=== PATIENT | female | born 1960 | race Caucasian/White ===

== ENCOUNTER 2018-02-05 06:39 | Day surgery (SDC) | payer BC ==
[2018-02-05 08:42] LABS: #Basophils 0.1 thou/uL (0.0-0.2); #Eosinphils 0.1 thou/uL (0.0-0.7); #Lymphocytes 1.1 thou/uL (1.20-3.40); #Monocytes 0.3 thou/uL (0.11-0.59); #Neutrophils 3.3 thou/uL (1.40-6.50); %Basophils 1.2 % (0.0-1.0); %Eosinophils 2.1 % (0.0-10.0); %Monocytes 6.2 % (0.0-10.0); %Neutrophils 68.6 % (42.0-75.0); Hemoglobin 15.5 g/dL (12.0-16.0); Mean Corpuscular HGB CONC 34.7 g/dL (32.0-36.0); Mean Corpuscular Hemoglobin 31.8 pg (27.0-31.0); Mean Corpuscular Volume 91.7 fL (78.0-98.0); Mean Platelet Volume 8.1 fL (7.4-10.4); Platelet Count 200 thou/uL (130-400); RBC Distribution Width 11.9 % (11.5-14.5); Red Blood Cell (RBC) Count 4.87 mill/uL (4.20-5.40); White Blood Cell (WBC) Count 4.8 thou/uL (4.8-10.8)
[2018-02-05] MEDS ORDERED: Midazolam HCl 2 mg/2 ml Vial ONE (08:43)
[2018-02-05] MEDS ORDERED: CEFAZOLIN 2 GM/50 ML BAG ONE (08:43)
[2018-02-05] MEDS ORDERED: Fentanyl 100 MCG/2 ML VIAL ONE (09:20)
[2018-02-05] MEDS ORDERED: Betamet Acet/Betamet Na Ph 30 MG/5 ML VIAL ONE (09:21)
[2018-02-05] MEDS ORDERED: Bacitracin Zinc Ointment 30 gm TUBE ONE (09:21)
[2018-02-05] MEDS ORDERED: Bupivacaine PF 0.5% 30 ML VIAL ONE (09:21)
[2018-02-05] MEDS ORDERED: Ketorolac Tromethamine 30 MG/ML VIAL ONE ×2 (11:17→16:45)
--- NOTE | 2018-02-05 13:38 | RAD ---
LEFT AND RIGHT THUMB TWO FLUOROSCOPIC SPOT IMAGES: INDICATION: Thumb CMC injections FINDINGS: The submitted images demonstrate needle localization of the first digit CMC articulation. IMPRESSION: Injection needles project over the thumb carpometacarpal joint. POS: [facility]
--- NOTE | 2018-02-05 15:57 | RAD ---
INTRAOPERATIVE FLUOROSCOPY 02/05/18 HISTORY: Injection into the first carpometacarpal joint space. FINDINGS: Intraprocedural fluoroscopic views demonstrate a needle projecting over the expected region of the fi rst carpometacarpal joint space. IMPRESSION: Fluoroscopy as above. POS: [facility]
[2018-02-05] MEDS ORDERED: Ondansetron PF 4 MG/2 ML Vial ONE (16:45)
[2018-02-05] MEDS ORDERED: Lidocaine 1% PF 5 ML VIAL ONE (16:45)
[2018-02-05] MEDS ORDERED: PROPOFOL 200 MG/20 ML VIAL ONE (16:45)
[2018-02-05] MEDS ORDERED: Dexamethasone 20 MG/5 ML VIAL ONE (16:45)
--- NOTE | 2018-02-07 15:37 | OP ---
DATE OF PROCEDURE: 02/05/2018 PREOPERATIVE DIAGNOSES: 1. Atrophy, possible spinal muscular disorder, possible dystrophy variant leading to weakness and atrophy of both hands that patient has been experiencing in thenar and first dorsal interosseous area. 2. 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 PROCEDURES PERFORMED: 1. Right first dorsal interosseous biopsy of muscle, standard 1.5 cm length, 5 mm width from the right side, then right thumb carpometacarpal joint injection with 2 mL of betamethasone/Celestone and then C-arm supervision. 1. At the left, left thenar flexor pollicis brevis muscle biopsy with carpometacarpal joint injection with same type, 2 mL of betamethasone and the patient had a C-arm used at the left side as well. TOURNIQUET TIME: 5 minutes on each side. There were no complications. Neurovascular bundles were protected. The patient will now be given osteoarthritis thumb carpometacarpal joint program for followup rehab. DESCRIPTION OF PROCEDURE: After successful general endotracheal anesthesia, Ms. Collier was prepped and draped. Time-out has been done appropriately and the patient had the right side approach first. We exsanguinated the limb, inflated the tourniquet, made a zigzag incision over the first dorsal interossei, removed the segment of muscle without violation of the innervation or the tendon that was approximately 6 to 7 mm wide and 27 mm long. Then, we lifted this out as we cut this longitudinally and allowed the muscle fibers, deflated the tourniquet, irrigated, obtained hemostasis, and closed the wound with interrupted with 4-0 nylon in a simple pattern. We then sent as a fresh frozen, dry, as stated above, 2.5 cm long and at least 5 mm wide. Then, on the left side, we performed the same mirroring the procedure except at this time we used the extensor flexor pollicis brevis muscle where there was atrophy and there were no complications. The C-arm was also used for injection to localize the joint. The patient then had no splint applied, just a soft dressing on both sides, excellent hemostasis, and will return to see us in clinic after obtaining short period of rest and motion trial. Job ID: [id number]
== END 2018-02-05 14:00 | disposition home or self-care (01) ==
LOC: SDC 06:39
PROVIDERS: ATTEND Orthopaedic Surgery Hand Surgery
PROC: 0KB Muscles, Excision (ICD-10-PCS; principal; 2018-02-05)
PROC: 0KB Muscles, Excision (ICD-10-PCS; principal; 2018-02-05)
PROC: 3E0U33Z Introduction of Anti-inflammatory into Joints, Percutaneous Approach (ICD-10-PCS; principal; 2018-02-05)
DX: G72.9 Myopathy, unspecified (principal); M18.0 Bilateral primary osteoarthritis of first carpometacarpal joints; G56.01 Carpal tunnel syndrome, right upper limb; G43.909 Migraine, unspecified, not intractable, without status migrainosus; K58.9 Irritable bowel syndrome, unspecified; D89.89 Other specified disorders involving the immune mechanism, not elsewhere classified; Z79.899 Other long term (current) drug therapy
CPT/HCPCS: 36415; 76001; 85025; 85652; 88305; 96372; 96374; J0131; J0702; J1100; J1885; J2001; J2250; J2405; J2704; J3010; J3490; S0020

== ENCOUNTER 2018-02-21 09:22 | Outpatient (CLI) | payer BC ==
--- NOTE | 2018-02-21 12:06 | MRI ---
BRAIN MRI WITH AND WITHOUT CONTRAST: 02/21/2018 HISTORY: Bilateral hand atrophy. Myopathy. Cerebral sclerosis. COMPARISON: 03/27/2016 TECHNIQUE: Multiplanar, multisequence MR imaging of the brain is obtained with and without contrast. FINDINGS: Diffusion weighted imaging demonstrates no evidence for acute infarction. There are scattered nonspecific T2 and FLAIR hyperintense foci within the periventricular, deep, and subcortical white matter, most numerous in the bilateral frontal lobes. Foci of hyperintensity also noted within the deep white matter on the left and the periventricular white matter, adjacent to the frontal horn of the left lateral ventricle. When compared to the 03/27/2016 examination, the distrib ution number and intensity of these areas of signal abnormality do not appear appreciably changed on FLAIR axial imaging. The axial gradient echo imaging demonstrates no evidence for intracranial hemorrhage. Sagittal FLAIR imaging demonstrates no focal area of signal abnormality within the corpus callosum. No discrete lesion is apparent within the middle cerebellar peduncle on either side. Arterial flow voids at the axial level of the skull base appear grossly unremarkable on the T2 weight ed imaging. The imaged paranasal sinuses/mastoid air cells demonstrate normal signal intensity. Post contrast imaging demonstrates no abnormal enhancement within the brain parenchyma. IMPRESSION: Stable brain MRI, as detailed above, demonstrating numerous foci of white matter signal abnormality, nonspecific. The distribution instability suggests small vessel disease. Alternative considerations , in the proper clinical setting, include vasculitis, Lyme disease, and demyelinating disease (includ ing multiple sclerosis) in areas of signal abnormality, on the basis of migraine headaches. Clinical correlation is required. POS: [facility]
== END 2018-02-21 09:23 | disposition home or self-care (01) ==
LOC: BICMRI 09:22
PROVIDERS: ATTEND Orthopaedic Surgery Hand Surgery
DX: G37.9 Demyelinating disease of central nervous system, unspecified (principal); G72.9 Myopathy, unspecified; M67.89 Other specified disorders of synovium and tendon, multiple sites; M71.39 Other bursal cyst, multiple sites; M67.49 Ganglion, multiple sites
CPT/HCPCS: 70553

== ENCOUNTER 2018-06-17 07:21 | Day surgery (SDC) | payer BC ==
[2018-06-14 16:52] VITALS: BMI 23.0
--- NOTE | 2018-06-17 09:10 | RAD ---
FFluoroscopically guided lumbar puncture: 06/17/2018 HISTORY: 57-year-old female with multiple sclerosis. TECHNIQUE: Signed informed consent obtained. Patient placed prone on fluoroscopy table. L2-3 level left paramedi an approach selected. Overlying skin prepared and draped in usual sterile fashion. 25-gauge needle us ed to apply buffered lidocaine superficially and deeply. Under brief, intermittent fluoroscopy, 22-ga uge spinal needle advanced into spinal canal and thecal sac. Upon return of clear CSF, a total of 11. 5 mL was collected in 4 separate vials, 1 mL in the first, 3 mL in second, 3 mL in third, and 4.5 mL in fourth . Needle was removed. Patient tolerated the procedure well. No complications. The CSF was s ent to laboratory for analysis. IMPRESSION: Successful lumbar puncture with collection of 11.5 mL of cerebrospinal fluid.
[2018-06-17 10:13] LABS: CSF Source CSF; Clarity Clear (Clear); RBC Count - Manual 23 /cumm (None Seen); Tube # 4; WBC/NonHematics Count - Manual 0 /cumm (0-5)
[2018-06-17 10:28] LABS: CSF, Glucose 57 mg/dl (40-70); CSF, Protein 27 mg/dL (15-40)
[2018-06-17 11:56] LABS: Ref Lab Test Ordered LYME PCR CSF; Reference Lab Name LABCORP
[2018-06-17 12:47] LABS: Color Of CSF Supernatant COLORLESS (Colorless); Tube # 1; Unspun CSF Color COLORLESS (Colorless)
[2018-06-19 12:15] LABS: VDRL, CSF Non Reactive (Non Rea:<1:1)
== END 2018-06-17 10:00 | disposition home or self-care (01) ==
LOC: RAD 07:21
PROVIDERS: ATTEND Family Medicine
PROC: 009U3ZX Drainage of Spinal Canal, Percutaneous Approach, Diagnostic (ICD-10-PCS; principal; 2018-06-17)
DX: G35 Multiple sclerosis (principal); K21.9 Gastro-esophageal reflux disease without esophagitis; M79.7 Fibromyalgia; E03.9 Hypothyroidism, unspecified; I10 Essential (primary) hypertension; K58.9 Irritable bowel syndrome, unspecified; G47.00 Insomnia, unspecified; E78.00 Pure hypercholesterolemia, unspecified; D89.89 Other specified disorders involving the immune mechanism, not elsewhere classified; Z79.899 Other long term (current) drug therapy; Z79.2 Long term (current) use of antibiotics
CPT/HCPCS: 36415; 62270; 82040; 82042; 82784; 82945; 83916; 84157; 86592; 87070; 87205; 89051

== ENCOUNTER 2023-07-30 13:55 | Day surgery (SDC) | payer BC ==
[2023-07-26 14:27] VITALS: BMI 21.6
[2023-07-30] MEDS ORDERED: Dexamethasone 4 mg/ml Vial ONE (14:25)
[2023-07-30] MEDS ORDERED: Lidocaine 2% PF 100 mg/5 ml Syringe ONE (14:25)
[2023-07-30] MEDS ORDERED: PROPOFOL 20 ML ONE (14:25)
[2023-07-30] MEDS ORDERED: Bupivacaine PF 0.5% 30 ML VIAL ONE ×2 (14:42→16:06)
[2023-07-30] MEDS ORDERED: fentaNYL 50 mcg/mL 1 mL Vial ONE (14:42)
[2023-07-30] MEDS ORDERED: Midazolam HCl 2 mg/2 ml Vial ONE ×2 (14:42→16:23)
[2023-07-30] MEDS ORDERED: Sodium Chloride 0.9% 100 ML ONE (14:59)
[2023-07-30] MEDS ORDERED: CEFAZOLIN 2 GM VIAL ONE (14:59)
[2023-07-30] MEDS ORDERED: Bacitracin Zinc Ointment 30 gm TUBE ONE (16:06)
[2023-07-30] MEDS ORDERED: Bupivacaine HCl 0.5%/Epinephrine 1:200,000/PF 30 ml Vial ONE (19:59)
[2023-07-30] MEDS ORDERED: Ondansetron PF 4 MG/2 ML Vial ONE (19:59)
[2023-07-30] MEDS ORDERED: Ketorolac Tromethamine 30 MG (1 mL) VIAL ONE (20:19)
[2023-07-30] MEDS ORDERED: diphenhydrAMINE 30 GM TUBE TOP PRN (20:29)
[2023-07-30] MEDS ORDERED: Ketorolac Tromethamine 30 MG (1 mL) VIAL IVP PRN (20:39)
[2023-07-30] MEDS ORDERED: Acetaminophen/Codeine 30-300mg Tablet ONE (20:43)
[2023-07-30] MEDS ORDERED: Hydrocortisone 1% Cream 30 GM TUBE TOP SCH (21:00)
[2023-07-31] MEDS ORDERED: Levothyroxine Sodium 75 MCG TAB PO SCH (06:00)
[2023-07-31] MEDS ORDERED: Hydroxychloroquine Sulfate 200 MG TAB PO SCH (09:00)
[2023-07-31] MEDS ORDERED: Nitrofurantoin Macrocrystal 50 MG CAP PO SCH (09:00)
[2023-07-31] MEDS ORDERED: Triamterene/Hydrochlorothiazide 37.5 mg/25 mg Tablet PO SCH (09:00)
== END 2023-07-30 21:24 | disposition home or self-care (01) ==
LOC: SDC 13:55
PROVIDERS: ATTEND Orthopaedic Surgery Hand Surgery
PROC: 0RGU0JZ Fusion of Right Metacarpophalangeal Joint with Synthetic Substitute, Open Approach (ICD-10-PCS; principal; 2023-07-30)
PROC: 0RRS0JZ Replacement of Right Carpometacarpal Joint with Synthetic Substitute, Open Approach (ICD-10-PCS; principal; 2023-07-30)
PROC: 0PTM0ZZ Resection of Right Carpal, Open Approach (ICD-10-PCS; 2023-07-30)
DX: M18.0 Bilateral primary osteoarthritis of first carpometacarpal joints (principal); M25.331 Other instability, right wrist; G56.03 Carpal tunnel syndrome, bilateral upper limbs; G72.9 Myopathy, unspecified; G56.30 Lesion of radial nerve, unspecified upper limb; M62.59 Muscle wasting and atrophy, not elsewhere classified, multiple sites; G43.909 Migraine, unspecified, not intractable, without status migrainosus; K58.9 Irritable bowel syndrome, unspecified; R53.83 Other fatigue; Z90.710 Acquired absence of both cervix and uterus; Z98.890 Other specified postprocedural states; Z88.2 Allergy status to sulfonamides; Z88.8 Allergy status to other drugs, medicaments and biological substances
CPT/HCPCS: J0665; J1100; J1885; J2001; J2250; J2405; J2704; J3010; J3490

== ENCOUNTER 2023-08-21 13:29 | Outpatient (CLI) | payer BC | END 2023-08-21 13:30 | disposition home or self-care (01) | LOC: BICMAMMO 13:29 | PROVIDERS: ATTEND Family Medicine | DX: Z12.31 Encounter for screening mammogram for malignant neoplasm of breast (principal); M85.89 Other specified disorders of bone density and structure, multiple sites; Z80.3 Family history of malignant neoplasm of breast | CPT/HCPCS: 77063; 77067; 77080 ==

== ENCOUNTER 2024-12-12 13:29 | Outpatient (CLI) | payer BC ==
[2024-12-12 14:30] LABS: Anion Gap 14 mmol/L (10-20); BUN (Urea Nitrogen) 16 mg/dL (9.8-20.1); Calc. Creatinine Clearance 0 mL/min (70-130); Calcium 9.4 mg/dL (7.8-10.44); Carbon Dioxide 29 mmol/L (23-31); Chloride 101 mmol/L (98-107); Glucose 80 mg/dL (80-115); Potassium 3.8 mmol/L (3.5-5.1); Sodium 140 mmol/L (136-145)
[2024-12-12 14:31] LABS: INR-International Normal Ratio 0.9; Prothrombin Time 12.5 sec (12.0-14.7)
== END 2024-12-12 13:30 | disposition home or self-care (01) ==
LOC: LABBT 13:29
PROVIDERS: ATTEND Orthopaedic Surgery Hand Surgery
DX: Z01.818 Encounter for other preprocedural examination (principal); M18.12 Unilateral primary osteoarthritis of first carpometacarpal joint, left hand
CPT/HCPCS: 80048; 85610; 87081; 93005; 93010